=== PATIENT | female | born 1995 | race Caucasian/White ===

== ENCOUNTER 2016-05-12 09:45 | Emergency (ER) | payer BC ==
[2016-05-12 10:01] VITALS: O2SAT 97
[2016-05-12 11:58] LABS: COLOR YELLOW; LEUKOCYTE ESTERASE,URINE 3+ (NEGATIVE); NITRITE,URINE NEGATIVE (NEGATIVE)
[2016-05-12 12:07] LABS: MUCUS TRACE /lpf (NONE-1+); WBC,URINE 50-182 /hpf (0-3)
--- NOTE | 2016-05-12 12:31 | EDPHY ---
H & P Stated Complaint: L flank pain,nauseated, UTI sxs x 3 days Time Seen by Provider: 05/12/16 12:15 HPI/ROS: CHIEF COMPLAINT: Left flank pain HISTORY OF PRESENT ILLNESS: 20-year-old immunocompetent female complaining of left flank pain since last evening, positive nausea and vomiting. Atraumatic. No dyspnea. No abdominal pain . No dyspnea. No chest pain. No vaginal bleeding or discharge. PRIMARY CARE PROVIDER: REVIEW OF SYSTEMS: A ten point review of systems was performed and is negative with the exception of the items mentioned in the HPI PAST MEDICAL & SURGICAL HISTORY: No pertinent medical or surgical history . No exogenous estrogen use. SOCIAL HISTORY:positive marijuana smoked PHYSICAL EXAM (Prior to examination, patient consented to physical exam, hands were washed and my usual and customary physical exam procedures followed) 1) GENERAL: Well-developed, well-nourished, alert and oriented. Appears to be in no acute distress. 2) HEAD: Normocephalic, atraumatic 3) HEENT: Pupils equal, round, reactive to light bilaterally. Sclera anicteric. Nasopharynx, oropharynx, clear, no lesions. Ears bilaterally with normal tympanic membranes. 4) NECK: Full range of motion, no meningeal signs. 5) LUNGS: Clear auscultation bilaterally, no wheezes, no rhonchi, no retractions. 6) HEART: Regular rate and rhythm, no murmur, no heave, no gallop. 7) ABDOMEN: No guarding, no rebound, no focal tenderness, negative McBurney's, negative [place]'s, negative Rovsing's, negative peritoneal sign, 8) MUSCULOSKELETAL: Moving all extremities, no focal areas of tenderness, no obvious trauma. No peripheral edema or discoloration. 9) BACK: positive left CVA tenderness, no midline vertebral tenderness, no fluctuance, no step-off, no obvious trauma, no visual or palpable abnormality. 10) SKIN: No rash, no petechiae. 11) Psychiatric: Patient is oriented X 3, there is no agitation. DIFFERENTIAL DIAGNOSIS: in no particular include but limited to nephrolithiasis pyelonephritis zoster, AAA - Personal History LMP (Females 10-55): 15-21 Days Ago Current Tetanus Diphtheria and Acellular Pertussis (TDAP): Yes - Medical/Surgical History Other PMH: neg - Social History Smoking Status: Current some day smoker Constitutional: Initial Vital Signs Temperature (C) 36.7 C 05/12/16 09:50 Heart Rate 86 05/12/16 09:50 Respiratory Rate 16 05/12/16 09:50 Blood Pressure 114/93 H 05/12/16 09:50 O2 Sat (%) 97 05/12/16 09:50 O2 Delivery Mode Room Air Allergies/Adverse Reactions: No Known Allergies Allergy (Unverified 05/12/16 09:59) Home Medications: Medication Instructions Recorded Cephalexin [Keflex] 500 mg PO TID 7 Days 05/12/16 Ondansetron Odt [Zofran Odt] 4 mg PO Q4PRN PRN #10 tab 05/12/16 oxyCODONE/APAP 5/325 [Percocet 1 tab PO Q6 #10 tab 05/12/16 5/325] Medical Decision Making - Diagnostics Imaging: CT Scan of the Urinary Tract (Abdomen and Pelvis Without Contrast) Indication: Left flank pain. Technique: Multidetector helical CT imaging was performed from the kidneys to the urinary bladder without contrast. Dose reduction techniques were utilized. Comparison: None. Findings: Minimal left perinephric edema and fullness of the left intrarenal collecting system. No joanie hydronephrosis, hydroureter, nephrolithiasis or ureteral calculi. Small volume of free fluid resides in the low pelvis. The urinary bladder is nearly completely empty. No adnexal mass. The appendix is normal. Bowel pattern is normal. The lung bases are clear. No pneumoperitoneum, lymphadenopathy, or mass. The noncontrast liver, spleen, pancreas, gallbladder, adrenal glands, and abdominal aorta are normal. No bone lesions. Impression: 1. Left perinephric edema may be manifestation of pyelonephritis or recently passed renal calculus. Trace free fluid. 2. No hydronephrosis, nephrolithiasis, or obstructing ureteral calculi. 3. Normal appendix. Findings discussed with Emergency Department physician language assistant, Koki Bansal on May 12, 2016 at 1315 hours. Attention: This CT examination is specifically designed to evaluate patients who are clinically suspected of having acute obstructive uropathy. This examination does not use radiographic contrast , and as such, provides only a limited evaluation of the abdomen, pelvis and retroperitoneum. If there is further clinical suspicion for pathological conditions other than obstructive uropathy, a complete CT evaluation of the abdomen and pelvis utilizing intravenous, oral, and rectal contrast should be considered. Dictated By: Walker Antoine MD images reviewed by myself ED Course/Re-evaluation: 1:50 p.m.: Re-evaluation. Discussed roll of imaging and laboratory results. Given IV hydration for her nausea and vomiting. I think symptoms are more than likely secondary to acute pyelonephritis.She has been given dose of IV Rocephin , discharged with oral Keflex. Urine cultured. I think the patient can be discharged as she is tolerating oral intake. She is tolerating oral intake at this time. However, provide her with strict return precautions. She feels comfortable being discharged. - Data Points Laboratory Results: Laboratory Results 05/12/16 12:45 05/12/16 12:45 05/12/16 05/12/16 05/12/16 12:45 12:45 11:15 WBC 14.98 10^3/uL H 10^3/uL (3.80-9.50) RBC 4.91 10^6/uL 10^6/uL (4.18-5.33) Hgb 13.4 g/dL g/dL (12.6-16.3) Hct 40.0 % % (38.0-47.0) MCV 81.5 fL fL (81.5-99.8) MCH 27.3 pg L pg (27.9-34.1) MCHC 33.5 g/dL g/dL (32.4-36.7) RDW 12.6 % % (11.5-15.2) Plt Count 195 10^3/uL 10^3/uL (150-400) MPV 10.5 fL fL (8.7-11.7) Neut % (Auto) 88.6 % H % (39.3-74.2) Lymph % (Auto) 4.6 % L % (15.0-45.0) [place] % (Auto) 5.9 % % (4.5-13.0) Eos % (Auto) 0.1 % L % (0.6-7.6) Baso % (Auto) 0.3 % % (0.3-1.7) Nucleat RBC Rel Count 0.0 % % (0.0-0.2) Absolute Neuts (auto) 13.28 10^3/uL H 10^3/uL (1.70-6.50) Absolute Lymphs (auto) 0.69 10^3/uL L 10^3/uL (1.00-3.00) Absolute Monos (auto) 0.88 10^3/uL H 10^3/uL (0.30-0.80) Absolute Eos (auto) 0.01 10^3/uL L 10^3/uL (0.03-0.40) Absolute Basos (auto) 0.04 10^3/uL 10^3/uL (0.02-0.10) Absolute Nucleated RBC 0.00 10^3/uL 10^3/uL (0-0.01) Immature Gran % 0.5 % % (0.0-1.1) Immature Gran # 0.08 10^3/uL 10^3/uL (0.00-0.10) Sodium 135 mEq/L mEq/L (134-144) Potassium 4.0 mEq/L mEq/L (3.5-5.2) Chloride 102 mEq/L mEq/L (97-110) Carbon Dioxide 23 mEq/l mEq/l (22-31) Anion Gap 10 mEq/L mEq/L (8-16) BUN 11 mg/dL mg/dL (7-23) Creatinine 0.6 mg/dL mg/dL (0.6-1.0) Estimated GFR > 60 Glucose 102 mg/dL H mg/dL (70-100) Calcium 9.2 mg/dL mg/dL (8.5-10.4) Urine Color YELLOW Urine Appearance HAZY Urine pH 7.0 (5.0-7.5) Ur Specific [place] 1.015 (1.002-1.030) Urine Protein 1+ H (NEGATIVE) Urine Ketones 1+ H (NEGATIVE) Urine Blood 2+ H (NEGATIVE) Urine Nitrate NEGATIVE (NEGATIVE) Urine Bilirubin NEGATIVE (NEGATIVE) Urine Urobilinogen NEGATIVE EU EU (0.2-1.0) Ur Leukocyte Esterase 3+ H (NEGATIVE) Urine RBC 5-10 /hpf H /hpf (0-3) Urine WBC 50-182 /hpf H /hpf (0-3) Ur Epithelial Cells TRACE /lpf /lpf (NONE-1+) Urine Mucus TRACE /lpf /lpf (NONE-1+) Urine Glucose NEGATIVE (NEGATIVE) Urine Test 05/12/16 11:15 WBC RBC Hgb Hct MCV MCH MCHC RDW Plt Count MPV Neut % (Auto) Lymph % (Auto) [place] % (Auto) Eos % (Auto) Baso % (Auto) Nucleat RBC Rel Count Absolute Neuts (auto) Absolute Lymphs (auto) Absolute Monos (auto) Absolute Eos (auto) Absolute Basos (auto) Absolute Nucleated RBC Immature Gran % Immature Gran # Sodium Potassium Chloride Carbon Dioxide Anion Gap BUN Creatinine Estimated GFR Glucose Calcium Urine Color Urine Appearance Urine pH Ur Specific [place] Urine Protein Urine Ketones Urine Blood Urine Nitrate Urine Bilirubin Urine Urobilinogen Ur Leukocyte Esterase Urine RBC Urine WBC Ur Epithelial Cells Urine Mucus Urine Glucose Urine Test NEGATIVE Medications Given: Discontinued Medications Ceftriaxone Sodium/Dextrose (Rocephin 1 Gm (Premix)) 50 mls @ 100 mls/hr IV EDNOW ONE PRN Reason: Protocol Stop: 05/12/16 13:02 Last Admin: 05/12/16 12:45 Dose: 50 mls Sodium Chloride (Ns) 1,000 mls @ 0 mls/hr IV ONCE ONE PRN Reason: Wide Open Stop: 05/12/16 12:40 Last Admin: 05/12/16 12:45 Dose: 1,000 mls Ketorolac Tromethamine (Toradol) 30 mg IVP EDNOW ONE Stop: 05/12/16 13:38 Last Admin: 05/12/16 13:51 Dose: 30 mg Departure - Departure Disposition: Home, Routine, Self-Care Clinical Impression: Acute pyelonephritis Nausea and vomiting Qualifiers: Vomiting type: unspecified Vomiting Intractability: non-intractable Qualified Code(s): R11.2 - Nausea with vomiting, unspecified Condition: Good Instructions: Kidney Infection (ED), Acute Nausea and Vomiting (ED) Additional Instructions: Return to the ER immediately if you experience fevers/chills, flu like symptoms , inability to tolerate oral intake, nausea or vomiting, or any other symptoms that concern you. Referrals: Franny Hutton MD [Medical Doctor] - 2-3 days, call for appt. Prescriptions: Cephalexin [Keflex] 500 mg PO TID 7 Days Ondansetron Odt [Zofran Odt] 4 mg PO Q4PRN PRN #10 tab PRN Reason: Nausea oxyCODONE/APAP 5/325 [Percocet 5/325] 1 tab PO Q6 #10 tab
[2016-05-12] MEDS ORDERED: NS 1,000 ML IV ONE (12:39)
[2016-05-12 12:57] LABS: % IMMATURE GRANULYOCYTES 0.5 % (0.0-1.1); ABSOLUTE IMMATURE GRANULOCYTES 0.08 10^3/uL (0.00-0.10); ADD DIFF? NO; ADD MORPH? NO; ADD SCAN? NO; ATYPICAL LYMPHOCYTE FLAG 20 (0-99); FRAGMENT RBC FLAG 0 (0-99); HEMOGLOBIN 13.4 g/dL (12.6-16.3); LEFT SHIFT FLG 20 (0-99); LIPEMIA HEMOLYSIS FLAG 80 (0-99); MEAN CELL HEMOGLOBIN 27.3 pg (27.9-34.1); MEAN CELL HEMOGLOBIN CONCENTR. 33.5 g/dL (32.4-36.7); MEAN CELL VOLUME 81.5 fL (81.5-99.8); MEAN PLATELET VOLUME 10.5 fL (8.7-11.7); PLATELET CLUMPS FLAG 0 (0-99); PLATELET COUNT 195 10^3/uL (150-400); RED BLOOD CELL COUNT 4.91 10^6/uL (4.18-5.33); RED CELL DISTRIBUTION WIDTH 12.6 % (11.5-15.2)
[2016-05-12 13:27] LABS: ANION GAP 10 mEq/L (8-16); CALCIUM 9.2 mg/dL (8.5-10.4); CARBON DIOXIDE 23 mEq/l (22-31); CHLORIDE 102 mEq/L (97-110); CREATININE 0.6 mg/dL (0.6-1.0); GLOMERULAR FILTRATION RATE > 60; GLUCOSE 102 mg/dL (70-100); SODIUM 135 mEq/L (134-144)
[2016-05-12] MEDS ORDERED: KETOROLAC 30 MG/1 ML SDV IVP ONE (13:37)
[2016-05-12 13:52] VITALS: BP 109/69; PULSE 100; RESP 18; TEMP 97.7
[2016-05-12] MEDS ORDERED: ONDANSETRON 4 MG/2 ML VIAL ONE (13:52)
[2016-05-12] MEDS ORDERED: ONDANSETRON 4 MG/2 ML VIAL IVP ONE (13:56)
== END 2016-05-12 14:16 | disposition home or self-care (01) ==
DX: N10 Acute pyelonephritis (principal); F17.200 Nicotine dependence, unspecified, uncomplicated
CPT/HCPCS: 96365; J0696; J1885; J2405

== ENCOUNTER 2016-05-15 19:11 | Emergency (ER) | payer BC ==
--- NOTE | 2016-05-15 20:01 | EDPHY ---
H & P Time Seen by Provider: 05/15/16 19:54 HPI/ROS: Chief complaint. Cough, nausea vomiting HPI. 20-year-old female seen in our emergency department several days ago with diagnosis of pyelonephritis. She has had vomiting the past 2 days. She has a new cough in the last day and a half. She does have a history of walking pneumonia. Her urinary symptoms seem to be better. She still has some left flank pain exacerbated by coughing. Denies fever. ROS Constitutional. no fever/chills, no weakness Eyes. no problems with vision ENT. no sore throat, no nasal drainage Cardiovascular. no chest pain Respiratory. Cough but no shortness of breath Abdominal. Left flank pain with cough . no problems urinating MS. no calf pain/swelling, no neck/back pain, no joint pain Skin. no rash Lymph. no swollen glands Neuro. no headache, no dizziness, no difficulty walking or with speech Past Medical/Surgical History: Pneumonia, pyelonephritis Social History: Single, daily smoker, no alcohol Smoking Status: Current some day smoker Physical Exam: General Appearance: Alert well-developed female moderate distress vital signs show heart rate 114 Eyes: Pupils equal and round no pallor or injection. ENT, pharynx without injection. Mucous membranes moist Respiratory: There are no retractions, lungs are clear to auscultation. Cardiovascular: Regular rate and rhythm. Gastrointestinal: Abdomen is soft and nontender, no masses, bowel sounds normal. No flank tenderness to palpation Neurological: Awake and alert, sensory and motor exams grossly normal. Skin: Warm and dry, no rashes. Musculoskeletal: Neck is supple nontender. Extremities symmetrical, full range of motion. Psychiatric: Patient is oriented X 3, there is no agitation. Constitutional: Initial Vital Signs Temperature (C) 37 C 05/15/16 19:25 Heart Rate 114 H 05/15/16 19:25 Respiratory Rate 18 05/15/16 19:25 Blood Pressure 121/81 H 05/15/16 19:25 O2 Sat (%) 97 05/15/16 19:25 O2 Delivery Mode Room Air Allergies/Adverse Reactions: No Known Allergies Allergy (Verified 05/15/16 19:30) Home Medications: Medication Instructions Recorded Cephalexin [Keflex] 500 mg PO TID 7 Days 05/12/16 Ondansetron Odt [Zofran Odt] 4 mg PO Q4PRN PRN #10 tab 05/12/16 Ondansetron Odt [Zofran Odt] 4 mg PO Q4PRN PRN #4 tab 05/15/16 oxyCODONE/APAP 5/325 [Percocet 1 tab PO Q4-6PRN PRN #14 tab 05/15/16 5/325] Medical Decision Making - Diagnostics Imaging: Chest x-ray interpreted by me shows no evidence for pneumonia Procedures: DuoNeb updraft Throat lozenges for cough Morphine for pain. Zofran for nausea ED Course/Re-evaluation: Re-evaluation 9:10 p.m.--patient is talking on the phone Re-evaluation 9:25 p.m. patient is markedly improved and feeling well. Occasional slight cough but no shortness of breath. Speaking in full sentences. Patient and I discussed laboratory and imaging study results. We discussed treatment plan including criteria for return importance of follow-up further evaluation. She expresses understanding and agreement Differential Diagnosis: I considered pneumonia, dehydration, worsening pyelonephritis. - Data Points Laboratory Results: Laboratory Results 05/15/16 20:28 05/15/16 20:28 05/15/16 05/15/16 05/15/16 20:28 20:28 20:28 WBC 8.05 10^3/uL 10^3/uL (3.80-9.50) RBC 4.31 10^6/uL 10^6/uL (4.18-5.33) Hgb 11.8 g/dL L g/dL (12.6-16.3) Hct 34.6 % L % (38.0-47.0) MCV 80.3 fL L fL (81.5-99.8) MCH 27.4 pg L pg (27.9-34.1) MCHC 34.1 g/dL g/dL (32.4-36.7) RDW 12.5 % % (11.5-15.2) Plt Count 217 10^3/uL 10^3/uL (150-400) MPV 10.3 fL fL (8.7-11.7) Neut % (Auto) 58.3 % % (39.3-74.2) Lymph % (Auto) 27.6 % % (15.0-45.0) [place] % (Auto) 11.1 % % (4.5-13.0) Eos % (Auto) 2.0 % % (0.6-7.6) Baso % (Auto) 0.5 % % (0.3-1.7) Nucleat RBC Rel Count 0.0 % % (0.0-0.2) Absolute Neuts (auto) 4.70 10^3/uL 10^3/uL (1.70-6.50) Absolute Lymphs (auto) 2.22 10^3/uL 10^3/uL (1.00-3.00) Absolute Monos (auto) 0.89 10^3/uL H 10^3/uL (0.30-0.80) Absolute Eos (auto) 0.16 10^3/uL 10^3/uL (0.03-0.40) Absolute Basos (auto) 0.04 10^3/uL 10^3/uL (0.02-0.10) Absolute Nucleated RBC 0.00 10^3/uL 10^3/uL (0-0.01) Immature Gran % 0.5 % % (0.0-1.1) Immature Gran # 0.04 10^3/uL 10^3/uL (0.00-0.10) Sodium 137 mEq/L mEq/L (134-144) Potassium 3.6 mEq/L mEq/L (3.5-5.2) Chloride 101 mEq/L mEq/L (97-110) Carbon Dioxide 24 mEq/l mEq/l (22-31) Anion Gap 12 mEq/L mEq/L (8-16) BUN 6 mg/dL L mg/dL (7-23) Creatinine 0.6 mg/dL mg/dL (0.6-1.0) Estimated GFR > 60 Glucose 86 mg/dL mg/dL (70-100) Calcium 8.8 mg/dL mg/dL (8.5-10.4) Beta HCG, Qual NEGATIVE Urine Color Urine Appearance Urine pH Ur Specific [place] Urine Protein Urine Ketones Urine Blood Urine Nitrate Urine Bilirubin Urine Urobilinogen Ur Leukocyte Esterase Urine RBC Urine WBC Ur Epithelial Cells Urine Bacteria Ur Culture Indicated? Urine Glucose 05/15/16 19:30 WBC RBC Hgb Hct MCV MCH MCHC RDW Plt Count MPV Neut % (Auto) Lymph % (Auto) [place] % (Auto) Eos % (Auto) Baso % (Auto) Nucleat RBC Rel Count Absolute Neuts (auto) Absolute Lymphs (auto) Absolute Monos (auto) Absolute Eos (auto) Absolute Basos (auto) Absolute Nucleated RBC Immature Gran % Immature Gran # Sodium Potassium Chloride Carbon Dioxide Anion Gap BUN Creatinine Estimated GFR Glucose Calcium Beta HCG, Qual Urine Color YELLOW Urine Appearance CLEAR Urine pH 6.0 (5.0-7.5) Ur Specific [place] 1.006 (1.002-1.030) Urine Protein NEGATIVE (NEGATIVE) Urine Ketones NEGATIVE (NEGATIVE) Urine Blood 1+ H (NEGATIVE) Urine Nitrate NEGATIVE (NEGATIVE) Urine Bilirubin NEGATIVE (NEGATIVE) Urine Urobilinogen NEGATIVE EU EU (0.2-1.0) Ur Leukocyte Esterase NEGATIVE (NEGATIVE) Urine RBC 1-3 /hpf /hpf (0-3) Urine WBC 3-5 /hpf H /hpf (0-3) Ur Epithelial Cells 1+ /lpf /lpf (NONE-1+) Urine Bacteria 2+ /hpf H /hpf (NONE SEEN) Ur Culture Indicated? INDICATED H (NI) Urine Glucose NEGATIVE (NEGATIVE) Medications Given: Discontinued Medications Albuterol/Ipratropium (Duoneb) 3 ml IH EDNOW ONE Stop: 05/15/16 20:11 Last Admin: 05/15/16 20:35 Dose: 3 ml Sodium Chloride (Ns) 1,000 mls @ 0 mls/hr IV ONCE ONE PRN Reason: Wide Open Stop: 05/15/16 20:11 Last Admin: 05/15/16 20:36 Dose: 1,000 mls Sodium Chloride (Ns) 1,000 mls @ 0 mls/hr IV ONCE ONE PRN Reason: Wide Open Stop: 05/15/16 20:11 Last Admin: 05/15/16 20:37 Dose: 1,000 mls Morphine Sulfate (Morphine) 6 mg IVP EDNOW ONE Stop: 05/15/16 20:11 Last Admin: 05/15/16 20:36 Dose: 6 mg Ondansetron HCl (Zofran) 4 mg IVP EDNOW ONE Stop: 05/15/16 20:11 Last Admin: 05/15/16 20:37 Dose: 4 mg Throat Lozenges (Cepacol Lozenge) 1 ea PO EDNOW ONE Stop: 05/15/16 21:06 Last Admin: 05/15/16 21:09 Dose: 1 ea Departure - Departure Disposition: Home, Routine, Self-Care Clinical Impression: Vomiting Qualifiers: Vomiting type: unspecified Vomiting Intractability: non-intractable Nausea presence: with nausea Qualified Code(s): R11.2 - Nausea with vomiting, unspecified Condition: Good Instructions: Acute Nausea and Vomiting (ED) Additional Instructions: Frequent, small sips fluids well nauseated. Gradual diet advancement. Zofran as needed for nausea. Percocet for pain and cough. Finish antibiotics. Return for worsening symptoms including fever and vomiting. Recheck in 2 days if not improving Referrals: NONE *PRIMARY CARE P,. [Primary Care Provider] - As per Instructions Franny Hutton MD [Medical Doctor] - 2-3 days, if not improved Prescriptions: Ondansetron Odt [Zofran Odt] 4 mg PO Q4PRN PRN #4 tab PRN Reason: Nausea/Vomiting, Use 1st oxyCODONE/APAP 5/325 [Percocet 5/325] 1 tab PO Q4-6PRN PRN #14 tab PRN Reason: Pain, Moderate
[2016-05-15] MEDS ORDERED: ONDANSETRON 4 MG/2 ML VIAL IVP ONE (20:10)
[2016-05-15] MEDS ORDERED: NS 1,000 ML IV ONE ×2 (20:10)
[2016-05-15] MEDS ORDERED: IPRATROPIUM/ALBUTEROL 3 ML DEYVIAL IH ONE (20:10)
[2016-05-15 20:44] LABS: COLOR YELLOW; LEUKOCYTE ESTERASE,URINE NEGATIVE (NEGATIVE); NITRITE,URINE NEGATIVE (NEGATIVE)
[2016-05-15 20:47] LABS: % IMMATURE GRANULYOCYTES 0.5 % (0.0-1.1); ABSOLUTE IMMATURE GRANULOCYTES 0.04 10^3/uL (0.00-0.10); ADD DIFF? NO; ADD MORPH? NO; ADD SCAN? NO; ATYPICAL LYMPHOCYTE FLAG 50 (0-99); FRAGMENT RBC FLAG 0 (0-99); HEMATOCRIT 34.6 % (38.0-47.0); HEMOGLOBIN 11.8 g/dL (12.6-16.3); LEFT SHIFT FLG 10 (0-99); LIPEMIA HEMOLYSIS FLAG 90 (0-99); MEAN CELL HEMOGLOBIN 27.4 pg (27.9-34.1); MEAN CELL HEMOGLOBIN CONCENTR. 34.1 g/dL (32.4-36.7); MEAN CELL VOLUME 80.3 fL (81.5-99.8); MEAN PLATELET VOLUME 10.3 fL (8.7-11.7); PLATELET CLUMPS FLAG 0 (0-99); PLATELET COUNT 217 10^3/uL (150-400); RED BLOOD CELL COUNT 4.31 10^6/uL (4.18-5.33); RED CELL DISTRIBUTION WIDTH 12.5 % (11.5-15.2)
[2016-05-15 20:54] LABS: BACTERIA 2+ /hpf (NONE SEEN)
[2016-05-15 21:05] LABS: ANION GAP 12 mEq/L (8-16); CALCIUM 8.8 mg/dL (8.5-10.4); CARBON DIOXIDE 24 mEq/l (22-31); CHLORIDE 101 mEq/L (97-110); CREATININE 0.6 mg/dL (0.6-1.0); GLOMERULAR FILTRATION RATE > 60; GLUCOSE 86 mg/dL (70-100); POTASSIUM 3.6 mEq/L (3.5-5.2); SODIUM 137 mEq/L (134-144)
[2016-05-15] MEDS ORDERED: CEPACOL LOZENGE PO ONE ×2 (21:05→21:06)
[2016-05-15] MEDS ORDERED: OXYCODONE/APAP 5/325MG PREPACK#4 BTL TAKEHOME ONE (21:58)
[2016-05-15] MEDS ORDERED: ONDANSETRON 4MG PREPACK#2 BTL TAKEHOME ONE (21:58)
[2016-05-15 22:54] VITALS: BP 117/99; PULSE 100; RESP 20; TEMP 97.9; O2SAT 98
== END 2016-05-15 22:55 | disposition home or self-care (01) ==
DX: R11.2 Nausea with vomiting, unspecified (principal); F17.200 Nicotine dependence, unspecified, uncomplicated
CPT/HCPCS: 96374; J2405